=== PATIENT | male | born 1950 | race Caucasian/White ===

== ENCOUNTER 2017-01-24 22:57 | Inpatient (IN) ==
--- NOTE | 2017-01-24 23:06 | Emergency Department Report ---
General Adult HPI - General Chief complaint: Abdominal Pain Stated complaint: abd pain Time Seen by Provider: 01/24/17 23:04 Source: patient Mode of arrival: EMS Limitations: no limitations - History of Present Illness HPI narrative: 66-year-old male presents to the emergency department with a chief complaint of generalized abdominal discomfort. Patient noted onset of symptoms at approximately 1 PM this afternoon. 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 Patient describes his pain as moderate. Pain is dull. There is no radiation. He does not note anything that makes his pain any better or any worse. He has noted one episode of nonbloody nonbilious emesis. Patient was at the truck stop when his symptoms began. Symptoms have been persistent in nature since onset. He denies any trauma, travel, poorly prepared food or recent antibiotic use. - Related Data Home Medications Medication Instructions Recorded Confirmed Aspirin 1 tab PO DAILY 01/24/17 01/24/17 Allergies Allergy/AdvReac Type Severity Reaction Status Date / Time methylphenidate AdvReac Verified 01/24/17 23:10 [From Ritalin] Review of Systems Constitutional: Denies: fever, chills Eyes: Denies: eye pain, vision change ENT: Denies: ear pain, throat pain Cardiovascular: Denies: chest pain, palpitations Respiratory: Denies: cough, dyspnea Gastrointestinal: Reports: abdominal pain, nausea, vomiting. Denies: diarrhea Genitourinary: Denies: urgency, dysuria Musculoskeletal: Denies: back pain, arthralgia Integumentary: Denies: erythema, rash Neurological: Denies: headache, numbness Psychiatric: Denies: anxiety, depression Endocrine: Denies: fatigue, heat or cold intolerance Hematological/Lymphatic: Denies: easy bleeding, easy bruising Allergic/Immunologic: Denies: facial swelling, urticaria PFS Patient Stated Medical History Other Yes: PROSTATE CA [facility] Medical History Small bowel obstruction (Acute Medical) Hypertension (Acute Medical) Surgical History: SBO Repair Family History: Reviewed and Noncontributory. - Social History Smoking status: Never smoker Substance use type: does not use Alcohol intake frequency: a few times a month Physical Exam - Limitations Limitations: no limitations - General General appearance: alert, in no apparent distress - Normal Exams: Head:: Normocephalic without trauma Eyes:: Pupils are PERRLA w/ EOMI, No scleral icterus, irritation, or foreign bodies noted ENMT:: No facial trauma, nasal exudates, pharyngeal erythema, or exudates are noted Dental: No fractured, loose, or missing teeth noted Neck:: Full range of motion, without adenopathy, JVD, bruits or thyromegaly Chest/Respirations:: Clear all keyes, with good airflow, and symmetry bilaterally Cardiovascular:: Regular rate and rhythm, without murmur or gallop, Pulses 2+ all extremities, capillary refill, <2 seconds all extremities Lymphatic:: No lymphadenopathy, or lymphedema noted Musculoskeletal:: No tenderness, or deformity noted, good range of motion, all extremities Integumentary:: No rashes, hives, or bruising noted, hair and nails, without abnormality Neurological:: Patient is alert, and oriented, cranial nerves, motor/sensory/ cerebellar, exams w/o gross deficits, to observation Psychiatric:: Patient exhibits, appropriate attention, emotion and affect Course Vital Signs Temperature 99.1 F 01/24/17 23:02 Pulse Rate 65 01/24/17 23:02 Respiratory Rate 18 01/24/17 23:02 Blood Pressure 150/67 H 01/24/17 23:02 Pulse Oximetry 97 01/24/17 23:02 Temperature 98.1 F 01/25/17 03:45 Pulse Rate 67 01/25/17 03:45 Respiratory Rate 20 01/25/17 03:45 Blood Pressure 160/84 H 01/25/17 03:45 Pulse Oximetry 97 01/25/17 03:45 Medical Decision Making - [facility] Narrative Medical decision making narrative: Labs / imaging were discussed in detail with the patient and questions are answered. Patient is given gentle IV hydration. Patient is given parental narcotic analgesic pain medication with improvement of symptoms in the emergency Department. Patient declines offered antiemetic medication. Patient declined recommended nasogastric tube placement. Patient is discussed with Dr. Marlow of general surgery who recommends admission to the hospitalist service and he will see the patient in consultation in the morning. Patient is discussed with Dr. Joy and admitted to the service of Dr. Pat after in improved condition. No further orders from accepting physician who is in agreement with the current plan of management. Patient is admitted to the hospital in improved condition. Patient is in agreement with the current plan of management. - Differential Diagnosis SBO, pancreatitis, cholelithiasis, cholecystitis, metabolic disorder - Lab Data Result diagrams: 01/24/17 23:23 01/24/17 23:23 Lab Results 01/24/17 01/24/17 01/24/17 Range/Units 22:20 23:23 23:23 WBC 11.2 H (4.5-11.0) T/MM3 RBC 4.83 (4.50-5.90) M/MM3 Hgb 14.6 (13.5-17.5) GM/DL Hct 44.6 (41-53) % MCV 92.3 (80-100) UM3 MCH 30.2 (26-34) UUG MCHC 32.7 (31-37) GM/DL RDW Std Deviation 44.3 (36.9-50.2) FL Plt Count 181 (130-400) T/MM3 MPV 10.9 (9.4-12.4) UM3 Immature Gran % (Auto) 0.2 (0.0-0.5) % Neut % (Auto) 69.1 H (33-66) % Lymph % (Auto) 18.3 L (23-45) % Forrest % (Auto) 3.6 (0-9.0) % Eos % (Auto) 8.6 H (0-4) % Baso % (Auto) 0.2 (0-2) % Neut # (Auto) 7.7 (1.8-7.7) T/MM3 Lymph # (Auto) 2.1 (1-4.8) T/MM3 Forrest # (Auto) 0.4 (0-0.8) T/MM3 Eos # (Auto) 1.0 H (0-0.5) T/MM3 Baso # (Auto) 0.0 (0-0.2) T/MM3 Abs Immat Gran (auto) 0.02 (0.00-0.03) T/MM3 Turbidity < 20 (0-20) Sodium 143 (134-144) MEQ/L Potassium 4.2 (3.6-5) MEQ/L Chloride 102 (98-107) MEQ/L Carbon Dioxide 28 (22-30) MEQ/L Anion Gap 13 (5-15) MEQ/L BUN 14.0 (9-20) MG/DL Creatinine 1.3 (0.8-1.5) MG/DL GFR Calculation 55 BUN/Creatinine Ratio 11 (6-26) RATIO Glucose 147 H (75-110) MG/DL Calculated Osmolality 279 (261-280) MOSM/KG Calcium 9.8 (8.4-10.2) MG/DL Total Bilirubin 0.80 (0.20-1.30) MG/DL Icterus Index < 2 (0-7) AST 27 (17-59) U/L ALT 44 (21-72) U/L Alkaline Phosphatase 84 (38-126) U/L Troponin I < 0.012 (0-0.12) ng/ml Total Protein 9.1 H (6.3-8.2) G/DL Albumin 4.6 (3.5-5.0) G/DL Globulin 4.5 H (2.4-3.6) G/DL Albumin/Globulin Ratio 1.0 L (1.1-2.2) RATIO Lipase 78 (23-300) U/L Specimen Hemolysis < 15 < 15 (0-25) Ur Collection Type Urine Color (YELLOW) Urine Clarity Urine pH (5.0-8.0) Ur Specific [place] (1.015-1.025) Urine Protein (NEGATIVE) Urine Glucose (UA) (NEGATIVE) Urine Ketones (NEGATIVE) Urine Occult Blood (NEGATIVE) Urine Nitrate (NEGATIVE) Urine Bilirubin (NEGATIVE) Urine Urobilinogen (NORMAL) EU/DL Ur Leukocyte Esterase (NEGATIVE) Urinalysis Comment 01/24/17 Range/Units 23:26 WBC (4.5-11.0) T/MM3 RBC (4.50-5.90) M/MM3 Hgb (13.5-17.5) GM/DL Hct (41-53) % MCV (80-100) UM3 MCH (26-34) UUG MCHC (31-37) GM/DL RDW Std Deviation (36.9-50.2) FL Plt Count (130-400) T/MM3 MPV (9.4-12.4) UM3 Immature Gran % (Auto) (0.0-0.5) % Neut % (Auto) (33-66) % Lymph % (Auto) (23-45) % Forrest % (Auto) (0-9.0) % Eos % (Auto) (0-4) % Baso % (Auto) (0-2) % Neut # (Auto) (1.8-7.7) T/MM3 Lymph # (Auto) (1-4.8) T/MM3 Forrest # (Auto) (0-0.8) T/MM3 Eos # (Auto) (0-0.5) T/MM3 Baso # (Auto) (0-0.2) T/MM3 Abs Immat Gran (auto) (0.00-0.03) T/MM3 Turbidity (0-20) Sodium (134-144) MEQ/L Potassium (3.6-5) MEQ/L Chloride (98-107) MEQ/L Carbon Dioxide (22-30) MEQ/L Anion Gap (5-15) MEQ/L BUN (9-20) MG/DL Creatinine (0.8-1.5) MG/DL GFR Calculation BUN/Creatinine Ratio (6-26) RATIO Glucose (75-110) MG/DL Calculated Osmolality (261-280) MOSM/KG Calcium (8.4-10.2) MG/DL Total Bilirubin (0.20-1.30) MG/DL Icterus Index (0-7) AST (17-59) U/L ALT (21-72) U/L Alkaline Phosphatase (38-126) U/L Troponin I (0-0.12) ng/ml Total Protein (6.3-8.2) G/DL Albumin (3.5-5.0) G/DL Globulin (2.4-3.6) G/DL Albumin/Globulin Ratio (1.1-2.2) RATIO Lipase (23-300) U/L Specimen Hemolysis (0-25) Ur Collection Type Urine, clean catch Urine Color Yellow (YELLOW) Urine Clarity Clear Urine pH 5.5 (5.0-8.0) Ur Specific [place] >=1.030 H (1.015-1.025) Urine Protein Negative (NEGATIVE) Urine Glucose (UA) Negative (NEGATIVE) Urine Ketones Negative (NEGATIVE) Urine Occult Blood Negative (NEGATIVE) Urine Nitrate Negative (NEGATIVE) Urine Bilirubin Negative (NEGATIVE) Urine Urobilinogen 0.2 (NORMAL) EU/DL Ur Leukocyte Esterase Negative (NEGATIVE) Urinalysis Comment Microscopic not ind. - Radiology Data CT ABD/PELVIS: Mid small bowel obstruction. Cholelithiasis. - EKG Data EKG #1 EKG results narrative: Normal Sinus Rhythm. 65 bpm. No STEMI. Disposition Clinical Impression: SBO (small bowel obstruction) Disposition: 02 To OBS [facility] Condition: Improved Time of Disposition: 01:30 (Admit. Dr. Pat. ) - Seen By: physician
[2017-01-24] MEDS ORDERED: NS 1,000 ML IV ONE (23:40)
[2017-01-25] MEDS ORDERED: FentaNYL 100 MCG/2 ML INJECTION IVP ONE (00:11)
[2017-01-25] MEDS ORDERED: IOHEXOL 300mg/ml 100ml INJECTION ONE (00:29)
[2017-01-25] MEDS ORDERED: NS 100 ML ONE (00:29)
[2017-01-25] MEDS ORDERED: SALINE FLUSH 10ml SYRINGE ONE (00:29)
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
[2017-01-25] MEDS ORDERED: HYDROMORPHONE 2 MG/ML INJECTION IVP PRN ×2 (03:47→16:18)
[2017-01-25] MEDS ORDERED: BISACODYL 10 MG SUPPOSITORY RECTALLY PRN (03:47)
[2017-01-25] MEDS ORDERED: ONDANSETRON 4 MG/2 ML INJECTION IVP PRN ×2 (03:47→16:18)
[2017-01-25 04:28] VITALS: BMI 34.7
[2017-01-25] MEDS: D5-1/2NS 1,000 ML IV SCH ×2 (04:28→14:47)
[2017-01-25] MEDS: SALINE FLUSH 10ml SYRINGE IVF PRN (04:28)
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
[2017-01-25] MEDS ORDERED: ENOXAPARIN 40 MG/0.4 ML INJECTION SQ SCH (09:00)
[2017-01-25] MEDS ORDERED: DIATRIZOATE MEGLUMINE/SOD. (66%/10%) 120ml SOLN ONE (09:56)
--- NOTE | 2017-01-25 11:26 | Consultation ---
DATE OF CONSULTATION 01/25/2017 FINDINGS Mr. Pugh is a 66-year-old gentleman who presented to our ER facility earlier this morning as a result of his history for abdominal pain. Mr. Quezada informs me that he has had multiple surgeries in the past. These have been as a result of several hernias. He informs he has also been operated on in the past as the result of a bowel obstruction. 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 He states that prior to his departure he had some mild abdominal discomfort. The patient states that after his delivery he was staying at [employer] here locally and began to develop horrific abdominal pain. Pain was located within his midabdomen. As time progressed and he was trying to rest in his truck he became more "ill." He began to have a component of some nausea and vomiting and increasing abdominal pain. He therefore presented to our Emergency Room facility for further care. PAST MEDICAL HISTORY Performed by my nurse practitioner, Marky Madrid. PAST SURGICAL HISTORY Performed by my nurse practitioner, Marky Madrid. MEDICATIONS Performed by my nurse practitioner, Marky Madrid. ALLERGIES Performed by my nurse practitioner, Marky Madrid. SOCIAL HISTORY Performed by my nurse practitioner, Marky Madrid. FAMILY HISTORY Performed by my nurse practitioner, Marky Madrid. REVIEW OF SYSTEMS Performed by my nurse practitionerMarky. PHYSICAL EXAMINATION Mr. Pugh is a 66-year-old gentleman who did not appear to be in acute distress this morning. He did have an NG in place and there was a fair amount of bilious material within the canister adjacent to the bed. VITALS: Temperature 97.9, pulse 68, respirations 16, blood pressure 145/74, SaO2 96% on room air. HEENT: Normocephalic. Pupils are equal, round and reactive to light and accommodation. NECK: Supple without lymphadenopathy. CHEST: Clear to auscultation bilaterally. HEART: Regular rate and rhythm. Normal S1 and S2 without gallops, murmurs or clicks. ABDOMEN: Visualization of the abdomen does reveal multiple surgical incisions present. His abdomen does appear slightly distended/protuberant in nature. Palpation of the abdomen did reveal tenderness within the mid abdomen/ epigastric region. There was perhaps a slight component of some voluntary guarding but no evidence for involuntary guarding or rebound tenderness. I did not appreciate any evidence for hepatomegaly or other abnormal masses. EXTREMITIES: Without clubbing, cyanosis, or edema. NEURO: Cranial nerves II-XII grossly intact. Patient is without focal motor or sensory deficits. LABORATORY/RADIOGRAPH EVALUATION The patient had a CBC upon admission and his white count was 11.2. Hemoglobin is 14.6. CMP was obtained and found to be essentially within normal limits. Radiographically, he did have a CT scan of his abdomen and pelvis. I did review the CT scan this morning. Findings are indicative for a complete small bowel obstruction. There is no dictated report present but one can see significant proximal small bowel dilatation with normal-appearing distal collapsed small bowel. ASSESSMENT A 66-year-old gentleman with probable complete small bowel obstruction. PLAN Will go ahead and place some Gastrografin per his NG today and clamp his NG and proceed with a small bowel followthrough. If the contrast would progress through his GI tract, will then discontinue NG and begin clear liquids. It is my intuition, however, given his marked abnormality on CT scan, that the contrast will not progress through his GI tract and the patient will require surgical intervention later today. I did discuss the above plan/algorithm with the patient. He understood and agreed. HUMBERTO
[2017-01-25] MEDS ORDERED: ERTAPENEM 1 G in NS 100 ML IV SCH (15:30)
--- NOTE | 2017-01-25 16:11 | CT Scan Report ---
EXAM: CT abdomen pelvis w con COMPARISON: None available. HISTORY: ABD PAIN, Hx SBO . Generalized abdominal pain. Discomfort. Vomiting. LOCATION OF DICTATION: [facility] [place] TECHNIQUE: Axial images were obtained from the domes of the diaphragms to the ischial tuberosities with administration of 93 mL Omnipaque 240 contrast. The study was reconstructed into thinner axial sections and in coronal and sagittal reformations. Study is reviewed in lung, soft tissue, bone and liver windows. The current CT scan was performed using radiation dose-reduction techniques. ABDOMEN AND PELVIS FINDINGS: LUNG BASES: The dependent atelectatic changes are noted. There is a diaphragmatic hernia at the left costo phrenic angle and at the right posterior hemidiaphragm. HEART: Unremarkable. No significant pericardial effusion. LIVER: Diffusely hypodense which may represent fatty infiltration. GALLBLADDER: There is a 1.7 cm rim calcified density at the neck of the gallbladder consistent with gallstone. There is likely another adjacent 2 centimeter gallstone as well. No gallbladder wall thickening or pericholecystic fluid is identified. No intra or extrahepatic ductal dilatation is seen. SPLEEN: Unremarkable. PANCREAS: Unremarkable. ADRENAL GLANDS: Unremarkable. AORTA/IVC/VASCULATURE: Unremarkable. LYMPH NODES: No lymphadenopathy is identified. Small lymph nodes are noted, but are not pathologically enlarged. GENITOURINARY: Unremarkable. No renal calculi or obstructive uropathy. The bladder and ureters appear unremarkable. BOWEL: Multiple sigmoid diverticuli are noted without evidence for acute diverticulitis. Scattered diverticuli seen throughout the remainder of the colon without acute inflammation. Remainder of the colon is unremarkable. The terminal ileum is unremarkable. The appendix is normal. The distal small bowel is decompressed. However the mid and proximal small bowel are fluid-filled and dilated. The transition point is uncertain but may be at the left mid abdomen. The duodenum and stomach are fluid-filled. ABDOMINAL/PELVIC WALL: A midline incision scar is noted. No herniated loops of bowel are identified. BONES: Facet atrophic changes are seen of the lower lumbar spine. Old healing fracture deformity of the right symphysis and inferior ramus and superior ramus is noted. The left superior and inferior ramus are intact. SI joint degenerative changes with sclerosis is noted. Facet sclerotic changes are seen of the lower lumbar spine. IMPRESSION: 1. Findings suggestive of a small bowel obstruction with dilatation of proximal and mid small bowel loops and decompressed distal small bowel loops. The transition point however is uncertain. 2. Cholelithiasis without other signs of acute cholecystitis. 3. Fatty infiltration of the liver. 4. Diaphragmatic hernia is noted at the posterior right hemidiaphragm and posterolateral left hemidiaphragm. 5. Sigmoid diverticulosis and scattered diverticula are seen throughout the colon without evidence for acute diverticulitis. NOTE: This study was reviewed via teleradiology by ad and a preliminary impression consistent with above findings was conveyed to the ordering clinician immediately after the exam. .
[2017-01-25] MEDS ORDERED: LR 1,000 ML IV SCH (16:15)
--- NOTE | 2017-01-25 16:17 | Anesthesia Preoperative Report ---
Anesthesia Preoperative Record - Date and Time Date: 01/25/17 Preoperative Diagnosis: SBO Proposed Procedure: Ex-Lap for SBO NPO Since Date: 01/25/17 NPO Since Time: 00:00 Allergies/Adverse Reactions: Allergies Allergy/AdvReac Type Severity Reaction Status Date / Time metoclopramide [From Reglan] Allergy Intermediate Verified 01/25/17 10:39 - Vital Signs Vital Signs: Temperature 97.5 F 01/25/17 15:02 Pulse Rate 64 01/25/17 15:02 Respiratory Rate 16 01/25/17 15:02 Blood Pressure 149/74 H 01/25/17 15:02 Pulse Oximetry 96 01/25/17 15:02 Height and Weight: Height 5 ft 9 in Weight 106.6 kg Body Mass Index 34.7 - Medications Inpatient Medications: Current Medications Bisacodyl (Dulcolax) 10 mg RECTALLY DAILY PRN PRN Reason: Constipation Hydromorphone HCl (Dilaudid) 0.5 mg IVP Q2H PRN PRN Reason: Pain Last Admin: 01/25/17 04:55 Dose: 0.5 mg Dextrose/Sodium Chloride (D5-1/2ns) 1,000 mls @ 100 mls/hr IV .Q10H KATERIN Last Admin: 01/25/17 14:47 Dose: Not Given Lactated Ringer's (Lactated Ringers) 1,000 mls @ 50 mls/hr IV .Q20H KATERIN Ondansetron HCl (Zofran) 4 mg IVP Q6H PRN PRN Reason: Nausea &/or vomiting Last Admin: 01/25/17 11:14 Dose: 4 mg Sodium Chloride (Iv Flush) 10 - 80 ml IVF PRN PRN PRN Reason: Flushing Last Admin: 01/25/17 04:28 Dose: 10 ml Home Medications: Home Medications Medication Instructions Recorded Confirmed Type Aspirin 1 tab PO DAILY 01/24/17 01/24/17 History Is Patient on Beta Ga?: No - Medical History Respiratory: DENIES: Asthma, Bronchitis, Chronic Obstructive Pulmonary Disease (COPD), Dyspnea, Orthopnea, Pulmonary Embolism, Pneumonia, Upper Respiratory Infection, Pulmonary Edema, Sleep Apnea, Tuberculosis, Other Cardiovascular: Reports: Hypertension Gastrointestional: Reports: Obstructive Bowel, Hiatal Hernia, Morbid Obesity Neuro/Musculoskeletal: Denies: HX.MS.OSAR, Back Problems, Cerebrovascular Accident, Depression, Headaches, Loss of Consciousness, Muscle Weakness, Neuromuscular Disorder, Paralysis, Paresthesia, Syncope, Seizures, Other Other History: Reports: Cancer (Prostate), Other (DVT in lower extremities) - Surgical History GI Surgery/Treatments: Reports: Colon Resection, Other (SMALL BOWEL OBSTRUCTION) Anesthesia Reactions: None Hx Family Anesthesia Reaction: No History of Motion Sickness: No - Social History Smoking Status: Never smoker Substance Use Type: does not use Alcohol Intake Frequency: a few times a month - Pertinent Findings EKG: Sinus Rhythm, First Degree AV Block - Physical Exam Respiratory Exam: Present: lungs clear, bilateral breath sounds equal Cardiovascular Exam: Present: regular rate and rhythm, no murmur - Airway Assessment Mallampati Score: II TMD: 3 Fingerbreadths Neck Extension: poor Teeth: chipped teeth/crowns (Right upper rear temporary crown fits tightly/not intended to be removed) Overall Assessment: may be difficult mask vent (NG tube in place), may be difficult intubation - ASA ASA Score: 2 - Plan Anesthesia: General Inhalation Gases - Discussion Discussion: Discussed risks/options/alternatives of anesthesia and questions answered. Patient consents. Nursing pain assessment noted. Present for Discussion: other (none) Attestation Statement: Prior to the delivery of any anesthetic medication, I examined the patient, developed the plan, obtained the patient's consent and discussed the risk and benefits of the procedure with the patient/guardian. - Additional Information Seen by Anesthesia: Yes
[2017-01-25] MEDS ORDERED: DiphenhydrAMINE 50 MG/ML INJECTION IVP PRN (16:18)
[2017-01-25] MEDS ORDERED: FentaNYL 250 MCG/5 ML INJECTION ONE (16:40)
--- NOTE | 2017-01-25 16:52 | XRay Report ---
Indication:SBO Procedure:XR small bowel follow through SMALL BOWEL FOLLOW-THROUGH: Technique: After obtaining two chiropractor assistant images, dilute Gastrografin was administered through the patient's NG tube. Conventional x-ray imaging of the abdomen was obtained in timed intervals. Findings: The NG tube is in place with the tip curled up into the fundus of the stomach. Multiple dilated small bowel loops are present. After approximately 30 minutes, Gastrografin was unable to pass through the remaining small bowel. After approximately 2.5 hours, no additional movement through the small bowel is visualized. This is highly suggestive of a small bowel obstruction in the mid abdomen. Surgical consultation is recommended. Impression: Findings suggestive of a complete small bowel obstruction in the mid abdomen. These results were telephoned to Dr. Marlow at the conclusion of this exam. .
--- NOTE | 2017-01-25 18:57 | XRay Report ---
Indication: small bowel obstruction PROCEDURE: XR KUB: Encounter: Initial Comparison: Small bowel series from earlier today Findings: Repeat examination shows contrast material has progressed through the small bowel into the colon reaching the rectum. This would be approximately seven hours after the initial contrast administration. Persistently dilated gas-filled small bowel remains in the left lateral abdomen. The other previously seen dilated small bowel loops are less apparent on the current exam. Impression: Contrast material has now traversed the small bowel and colon to the level of the rectum. .
[2017-01-26] MEDS: SALINE FLUSH 10ml SYRINGE IVF PRN (00:03)
[2017-01-26 07:16] VITALS: BP 138/76; PULSE 61; RESP 16; TEMP 96.4; O2SAT 98
[2017-01-26] MEDS ORDERED: BISACODYL 10 MG SUPPOSITORY RECTALLY ONE (07:26)
--- NOTE | 2017-01-26 08:08 | General Surgery Progress Note ---
Subjective Patient reports: no new complaints, feels better, tolerating a regular diet, bowel movement Narrative: He denies nausea, abd pain. He had a BM just before anticipated surgery last evening, and another small one this morning. His is in [place] and will be here after she has a chance to sleep a little. He anticipates discharge today and return to [place]. - Vital Signs Last Vital Signs Temp 96.4 F L 01/26/17 07:12 Pulse 61 01/26/17 07:12 Resp 16 01/26/17 07:12 BP 138/76 01/26/17 07:12 Pulse Ox 98 01/26/17 07:12 - Laboratory Result Diagrams: 01/26/17 04:06 01/26/17 04:06 - Radiology KUB upright report pending. There is contrast in colon and rectum, some small bowel with a few air fluid levels and some dilatation. - Normal Exam General: awake, alert, oriented, no acute distress Eyes: sclera clear Cardiovascular: regular rhythm, regular rate Respiratory: clear bilaterally, no labored breathing Abdominal: BS normo active x4, soft, no guarding, non-tender Psychiatric: normal affect, normal mood Neurological: CN 2-12 grossly intact Additional Normal Findings: ]Skin warm/dry/pink Assessment and Plan (1) Small bowel obstruction Current Visit: Yes Status: Resolved Plan: SBO resolved after Gastrografin SBFT. He had another small BM during the night. Will get a suppository this am with time to evacuate more contrast and air before discharge and a 12 hour ride home. Hospital Course Summary Disclaimer: The visit summary below is not to be considered part of the above Progress Note. Hospital Course: 01/25/17 Inpatient admission Assessment Acute small bowel obstruction Ab pain secondary to SBO Nausea secondary to SBO Leukocytosis Hyperglycemia Elevated blood pressure Hx of prior SBO with surgical intervention Hx Prostate CA treated with radiation Obesity with BMI 34.7 Plan Inpatient admission due to SBO. NPO for bowel rest - NG to LIS to nausea and abdominal distention. IVF for hydration - D51/2NS ordered. Dilaudid for pain control and Zofran for nausea. Consult with Dr Marlow for surgical evaluation of his SBO Recommends Gastrografin SBFT to help gauge obstruction. SCD for DVT prevention. Monitor lab. Full code as per his requests. Care to return to PCP at time of discharge from [facility].
--- NOTE | 2017-01-26 08:32 | XRay Report ---
Indication: F/U SBO PROCEDURE: XR KUB w upright: Encounter: Initial Comparison: KUB dated January 25, [address] abdomen dated January 25, 2017 Findings: Interval passage of contrast through the small bowel and colon with residual contrast material seen in the right colon, transverse colon and rectosigmoid region. Some air-fluid levels remaining in the left upper quadrant. No free air. Lung bases are clear. Dilated small bowel remaining measuring up to 5.6 cm in size. Impression: Continued findings of a moderate to high-grade partial small bowel obstruction. .
--- NOTE | 2017-01-26 09:57 | Progress Note ---
- Date 01/26/17 Subjective: F/U: Small bowel obstruction Doing much better this am. No ab pain or nausea. Passing flatus and stool. Able to tolerated full liquids well. Breathing well. Ambulating well. No f/c. Feels ready to go home. Objective Vital signs: Temperature 96.4 F L 01/26/17 07:12 Pulse Rate 61 01/26/17 07:12 Respiratory Rate 16 01/26/17 07:12 Blood Pressure 138/76 01/26/17 07:12 Pulse Oximetry 98 01/26/17 07:12 Height/Weight/BMI: Height 1.75 m Weight 104.8 kg Body Mass Index 34.7 - Constitutional Present: no acute distress, well nourished, well developed, average body habitus , obese, cooperative. Absent: combative, agitated, somnolent, obtunded - Routine HEENT Exam Eye: Present: EOMI, PERRL ENT: Present: mucous membranes moist - Routine Respiratory Exam Present: CTA bilaterally. Absent: rales, respiratory distress, rhonchi, wheezes , crackles - Routine Cardiovascular Exam Present: RRR, no murmur - Routine Abdominal Exam Present: soft, normoactive bowel sounds, non distended, non tender - Routine Extremities Exam Present: no edema, pulses intact. Absent: cyanosis, clubbing - Routine Musculoskeletal Exam Musculoskeletal: Present: no clubbing or cyanosis, normal strength - Routine Skin Exam Present: dry, warm - Routine Neurological Exam Present: alert, oriented X3, CN II-XII intact, moving all extremities, vision grossly intact, hearing grossly intact, normal speech. Absent: motor deficit, altered mental status - Routine Psychiatric Exam Present: normal affect, normal thought process, cooperative, good insight, good judgment. Absent: anxious, agitated Results - Labs CBC & Chem 7: 01/26/17 04:06 01/26/17 04:06 Assessment and Plan (1) Small bowel obstruction Current visit: Yes Status: Resolved (2) Hypertension Current visit: Yes Status: Acute Assessment and Plan: Assessment Acute small bowel obstruction - resolve. Repeat KUB showing moderate to high-grade partial small bowel obstruction. Contrast has passed into colon. Complete obstruction resolved. Ab pain secondary to SBO - resolved Nausea secondary to SBO -resolved Leukocytosis (POA) - resolved Hyperglycemia (POA) - resolved Elevated blood pressure secondary to acute ab pain - resolved Hx of prior SBO with surgical intervention Hx Prostate CA treated with radiation Obesity with BMI 34.7 Plan With significant improvement of clinical symptoms and radiographic findings of contrast passing into colon, feel can discharge to home. Dr Marlow ordered Dulcolax suppository to help pass air/contrast to clean out colon due to his long car ride home. Advised patient that symptoms may return at any time - still has area of moderate to high grade obstruction in small bowel. Advised chewing food very thoroughly to decrease risk of obstruction. Caution with intake of 'roughage.' May use Tylenol for pain. [place] for more severe pain. Advised side effects of [place] - nausea, constipation, mental clouding. Advised patient NOT to drive, operate heavy machinery while using [place]. F/U with PCP when returns home. Encourage frequent breaks on trip home. May return to work later this week. Patient should not drive his Semi home. See orders for details. Time spent with patient care and discharge greater than 30 minutes. Questions answered. DVT Prophylaxis: Lovenox Resuscitation Status: Full Code Hospital Course Summary Disclaimer: The visit summary below is not to be considered part of the above Progress Note. Hospital Course: 01/25/17 Inpatient admission Assessment Acute small bowel obstruction Ab pain secondary to SBO Nausea secondary to SBO Leukocytosis Hyperglycemia Elevated blood pressure Hx of prior SBO with surgical intervention Hx Prostate CA treated with radiation Obesity with BMI 34.7 Plan Inpatient admission due to SBO. Anticipate greater than 2 midnights of care needed. Significant concern for need of surgical correction of SBO due to mesh in abdomen. NPO for bowel rest - NG to LIS to nausea and abdominal distention. IVF for hydration - D51/2NS ordered. Dilaudid for pain control and Zofran for nausea. Consult with Dr Marlow for surgical evaluation of his SBO Recommends Gastrografin SBFT to help gauge obstruction. SCD for DVT prevention. Monitor lab. Full code as per his requests. Care to return to PCP at [place] [facility] [place] SBFT revealed a complete small bowel obstruction in the mid abdomen. Dr Marlow made arrangements for surgical correction of SBO. While patient in preop, did develop significant fecal urgency and need for bowel movement. Did pass significant stool. Passing stool did give evidence to support resolution of complete SBO. Surgery cancel and patient returned to room. NG removed. Diet advanced to full liquids. 01/26/17 Doing very well this am. Ab pain and nausea resolved. Tolerating full liquids. Ambulation well. With significant improvement of clinical symptoms and radiographic findings of contrast passing into colon, feel can discharge to home. Dr Marlow ordered Dulcolax suppository to help pass air/contrast to clean out colon due to his long car ride home. Advised patient that symptoms may return at any time - still has area of moderate to high grade obstruction in small bowel. Advised chewing food very thoroughly to decrease risk of obstruction. Caution with intake of 'roughage.' May use Tylenol for pain. [place] for more severe pain. Advised side effects of [place] - nausea, constipation, mental clouding. Advised patient NOT to drive, operate heavy machinery while using [place]. F/U with PCP when returns home. Encourage frequent breaks on trip home. May return to work later this week. Patient should not drive his Semi home. See orders for details.
--- NOTE | 2017-01-26 10:07 | Discharge Summary ---
Discharge Information Date of admission: 01/25/17 01:46 Anticipated date of discharge: 01/26/17 Attending Physician: Dr Shook Consults: Dr Marlow - Surgery - Discharge Diagnosis (1) Small bowel obstruction Status: Resolved Discharge diagnosis Acute small bowel obstruction - resolve. Repeat KUB showing moderate to high-grade partial small bowel obstruction. Contrast has passed into colon. Complete obstruction resolved. Associated conditions and complications Ab pain secondary to SBO - resolved Nausea secondary to SBO -resolved Leukocytosis (POA) - resolved Hyperglycemia (POA) - resolved Elevated blood pressure secondary to acute ab pain - resolved Hx of prior SBO with surgical intervention Hx Prostate CA treated with radiation Obesity with BMI 34.7 - Laboratory Labs: Admit Lab 01/24/17 23:23 WBC 11.2 H Hgb 14.6 Hct 44.6 MCV 92.3 Plt Count 181 Neut % (Auto) 69.1 H Lymph % (Auto) 18.3 L [place] % (Auto) 3.6 Eos % (Auto) 8.6 H Admit Lab 01/24/17 23:23 Sodium 143 Potassium 4.2 Chloride 102 Carbon Dioxide 28 Anion Gap 13 BUN 14.0 Creatinine 1.3 GFR Calculation 55 BUN/Creatinine Ratio 11 Glucose 147 H Calculated Osmolality 279 Calcium 9.8 Total Bilirubin 0.80 ALT 44 Alkaline Phosphatase 84 Total Protein 9.1 H Albumin 4.6 Globulin 4.5 H Albumin/Globulin Ratio 1.0 L Lipase 78 01/26/17 04:06 01/26/17 04:06 - Radiology Radiology: Date of Exam: 01/25/17 Type of Exam: CT abdomen pelvis w con ABDOMEN AND PELVIS FINDINGS: LUNG BASES: The dependent atelectatic changes are noted. There is a diaphragmatic hernia at the left costo phrenic angle and at the right posterior hemidiaphragm. HEART: Unremarkable. No significant pericardial effusion. LIVER: Diffusely hypodense which may represent fatty infiltration. GALLBLADDER: There is a 1.7 cm rim calcified density at the neck of the gallbladder consistent with gallstone. There is likely another adjacent 2 centimeter gallstone as well. No gallbladder wall thickening or pericholecystic fluid is identified. No intra or extrahepatic ductal dilatation is seen. SPLEEN: Unremarkable. PANCREAS: Unremarkable. ADRENAL GLANDS: Unremarkable. AORTA/IVC/VASCULATURE: Unremarkable. LYMPH NODES: No lymphadenopathy is identified. Small lymph nodes are noted, but are not pathologically enlarged. GENITOURINARY: Unremarkable. No renal calculi or obstructive uropathy. The bladder and ureters appear unremarkable. BOWEL: Multiple sigmoid diverticuli are noted without evidence for acute diverticulitis. Scattered diverticuli seen throughout the remainder of the colon without acute inflammation. Remainder of the colon is unremarkable. The terminal ileum is unremarkable. The appendix is normal. The distal small bowel is decompressed. However the mid and proximal small bowel are fluid-filled and dilated. The transition point is uncertain but may be at the left mid abdomen. The duodenum and stomach are fluid -filled. ABDOMINAL/PELVIC WALL: A midline incision scar is noted. No herniated loops of bowel are identified. BONES: Facet atrophic changes are seen of the lower lumbar spine. Old healing fracture deformity of the right symphysis and inferior ramus and superior ramus is noted. The left superior and inferior ramus are intact. SI joint degenerative changes with sclerosis is noted. Facet sclerotic changes are seen of the lower lumbar spine. IMPRESSION: 1. Findings suggestive of a small bowel obstruction with dilatation of proximal and mid small bowel loops and decompressed distal small bowel loops. The transition point however is uncertain. 2. Cholelithiasis without other signs of acute cholecystitis. 3. Fatty infiltration of the liver. 4. Diaphragmatic hernia is noted at the posterior right hemidiaphragm and posterolateral left hemidiaphragm. 5. Sigmoid diverticulosis and scattered diverticula are seen throughout the colon without evidence for acute diverticulitis. Date of Exam: 01/25/17 Procedure: XR small bowel follow through SMALL BOWEL FOLLOW-THROUGH: Findings: The NG tube is in place with the tip curled up into the fundus of the stomach. Multiple dilated small bowel loops are present. After approximately 30 minutes, Gastrografin was unable to pass through the remaining small bowel. After approximately 2.5 hours, no additional movement through the small bowel is visualized. This is highly suggestive of a small bowel obstruction in the mid abdomen. Surgical consultation is recommended. Impression: Findings suggestive of a complete small bowel obstruction in the mid abdomen. Date of Exam: 01/25/17 PROCEDURE: XR KUB Findings: Repeat examination shows contrast material has progressed through the small bowel into the colon reaching the rectum. This would be approximately seven hours after the initial contrast administration. Persistently dilated gas- filled small bowel remains in the left lateral abdomen. The other previously seen dilated small bowel loops are less apparent on the current exam. Impression: Contrast material has now traversed the small bowel and colon to the level of the rectum. Date of Exam: 01/26/17 PROCEDURE: XR KUB w upright Findings: Interval passage of contrast through the small bowel and colon with residual contrast material seen in the right colon, transverse colon and rectosigmoid region. Some air-fluid levels remaining in the left upper quadrant. No free air. Lung bases are clear. Dilated small bowel remaining measuring up to 5.6 cm in size. Impression: Continued findings of a moderate to high-grade partial small bowel obstruction. 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 He vomited once before the ambulance brought him in and 2 times here. He' s received some IV opiates and had some relief from the pain but it's returning again sees asked for some more. He was feeling ill at home for the past couple of days but bowel movement. Relieved it. He does have a history of small bowel obstruction about 8-10 years ago, he had to have an exploratory laparotomy to relieve that. Prior to that he did have a hernia surgery that he thinks he had mesh lay still. His past medical history is significant otherwise for hypertension and prostate cancer treated with radiation. He denies other surgical interventions. He has not been passing any flatus today and his last bowel movement was at least yesterday if not previously EKG without acute ischemic changes. He's feeling a bit better, and is willing to have an NG placed but has not been placed yet. The emergency room physician spoke with Dr. Marlow, he is agreeable to consult this morning. When patient had previously had a small bowel obstruction happened to him while he was in [facility], he received medical therapy for some resolution but then returned home to [place] is to have the operation. For complete details of the H&P refer to that document. Objective Vital signs: Temperature 96.4 F L 01/26/17 07:12 Pulse Rate 61 01/26/17 07:12 Respiratory Rate 16 01/26/17 07:12 Blood Pressure 138/76 01/26/17 07:12 Pulse Oximetry 98 01/26/17 07:12 Height/Weight/BMI: Height 1.75 m Weight 104.8 kg Body Mass Index 34.7 Hospital Course This is a general summary of the patient's hospital course. For more details refer to the complete medical record. Hospital course: 01/25/17 Inpatient admission Assessment Acute small bowel obstruction Ab pain secondary to SBO Nausea secondary to SBO Leukocytosis Hyperglycemia Elevated blood pressure Hx of prior SBO with surgical intervention Hx Prostate CA treated with radiation Obesity with BMI 34.7 Plan Inpatient admission due to SBO. Anticipate greater than 2 midnights of care needed. Significant concern for need of surgical correction of SBO due to mesh in abdomen. NPO for bowel rest - NG to LIS to nausea and abdominal distention. IVF for hydration - D51/2NS ordered. Dilaudid for pain control and Zofran for nausea. Consult with Dr Marlow for surgical evaluation of his SBO Recommends Gastrografin SBFT to help gauge obstruction. SCD for DVT prevention. Monitor lab. Full code as per his requests. Care to return to PCP at time of discharge from [facility]. SBFT revealed a complete small bowel obstruction in the mid abdomen. Dr Marlow made arrangements for surgical correction of SBO. While patient in preop, did develop significant fecal urgency and need for bowel movement. Did pass significant stool. Passing stool did give evidence to support resolution of complete SBO. Surgery cancel and patient returned to room. NG removed. Diet advanced to full liquids. 01/26/17 Doing very well this am. Ab pain and nausea resolved. Tolerating full liquids. Ambulation well. With significant improvement of clinical symptoms and radiographic findings of contrast passing into colon, feel can discharge to home. Dr Marlow ordered Dulcolax suppository to help pass air/contrast to clean out colon due to his long car ride home. Advised patient that symptoms may return at any time - still has area of moderate to high grade obstruction in small bowel. Advised chewing food very thoroughly to decrease risk of obstruction. Caution with intake of 'roughage.' May use Tylenol for pain. Gipsy for more severe pain. Advised side effects of Gipsy - nausea, constipation, mental clouding. Advised patient NOT to drive, operate heavy machinery while using Gipsy. F/U with PCP when returns home. Encourage frequent breaks on trip home. May return to work later this week. Patient should not drive his Semi home. See orders for details. DVT Prophylaxis: Lovenox Discharge Plan - Discharge Disposition Discharge Date: 01/26/17 Disposition: 01 Discharged Home, Self-Care *Condition: Improved Reason For Visit (Visit label in EMR): SBO - Discharge Medications *Discharge Medications: New Hydrocodone/APAP 5/325 [Gipsy 5/325] 1 - 2 tab PO Q4H PRN #15 tab PRN Reason: Pain Ondansetron HCl [Zofran] 4 mg PO Q4H #15 tab Continue Aspirin 1 tab PO DAILY - Discharge Packet/Instructions *Diet: clear liquids only, if doing well may slowly advance diet *Activity: as tolerated *Pain Management/Treatment: Tylenol 500mg 1-2 pills up to 4x a day. Gipsy 5/ 325 1-2 pills if needed for pain not controlled by Tylenol. Zofran as needed for nausea. *Wound Care: n/a Additional Instructions: Follow up with your primary doctor as soon as you are home. *Expected Signs/Symptoms: continued improvement in abdominal pain and passing more stool. *Notify Physician if: you have increasing pain or nausea and vomiting. *During Business Hours Contact: your primary care provider *After Business Hours Contact: your primary care provider and follow after hour instructions or call nearest hospital *Pending Lab/Results: No Pending Lab - Referrals/Follow Up - Patient Handouts Patient Handouts: Bowel Obstruction (GEN) - Dismissal Complete Discharge Instructions are:: Complete Attestation Narriative - Attestation Attestation Narrative: 01/26/17 10:14 I have independently interviewed and examined patient prior to discharge. See my progress note from today for detail. Medically stable for discharge to home.
--- NOTE | 2017-01-26 10:22 | Work/School Release ---
Work/School Release - Date Date: 01/26/17 - Work Release Remain off work/school for:: Mr Saldaña presented to ED at [facility] late in the evening of 01/24/17. Evaluation in ED indicated need for acute hospitalization with possible need for surgery. Was hospitalized until 01/26/17. He should not drive home - family members have come up to drive him home. He is not able to drive his Semi home. He may return to work after Thanksgiving.
== END 2017-01-26 10:25 | disposition home or self-care (01) | DRG 390 ==
LOC: ED 22:57 → MED 01-25 01:46
PROVIDERS: ADMIT Pediatrics; ATTEND Internal Medicine